=== PATIENT | female | born 1995 | race Two or more races ===

== ENCOUNTER → 2024-10-12 | Outpatient (CLI) | payer BC, SELFPAY ==
--- NOTE | 2024-10-12 08:46 | XR_ITS ---
Examination: Transvaginal ultrasound of the pelvis, complete Technique: Transvaginal sonographic images pelvis performed using salcido scale imaging Exam date and time: October 12, 2024 0909 hours INDICATIONS: Irregular heavy menses beginning 2 months ago FINDINGS: Uterus 6.8 cm endometrial stripe 0.6 cm Mild free fluid in the endometrium No uterine mass or intrauterine gestation Right ovary 2.7 cm arterial flow follicular cyst, 10 mm, 11 mm Left ovary 2.6 cm arterial flow 18 mm, 9 mm cyst IMPRESSION: No uterine mass or intrauterine gestation.
--- NOTE | 2024-10-12 08:46 | XR_ITS ---
Examination: Pelvic ultrasound, transabdominal, complete Technique: Transabdominal ultrasound of the pelvis performed using grayscale imaging Date and time of exam: October 12, 2024 0854 hours INDICATIONS: Irregular heavy menses 2 months FINDINGS: Uterus 6.4 cm endometrial stripe 1.0 cm Mild free fluid in the endometrium No intrauterine gestation or uterine mass Right ovary 3.4 cm arterial flow, follicles, the largest 8 mm Left ovary 3.2 cm arterial flow, follicles, the largest 15 mm, 11 mm IMPRESSION: No uterine mass or intrauterine gestation
[2024-10-12 10:08] LABS: Basophils # (Auto) 0.1 Thou/mm3 (0.0-0.2); Basophils % (Auto) 1 % (0-2.5); Eosinophils # (Auto) 0.3 Thou/mm3 (0.0-0.5); Eosinophils % (Auto) 4 % (0-10); Hematocrit 43.7 % (36.0-46.0); Hemoglobin 14.9 g/dL (12.0-16.0); Immature Granulocytes % (Auto) 0 % (0-0); Immature Granulocytes Auto 0.01 Thou/mm3 (0.00-0.00); Lymphocytes # (Auto) 2.6 Thou/mm3 (1.0-4.8); Lymphocytes % (Auto) 39 % (10-50); Mean Corpuscular HGB Conc 34.1 g/dl (31.0-37.0); Mean Corpuscular Hemoglobin 28.7 pg (25.0-35.0); Mean Corpuscular Volume 84 fL (80-100); Monocytes # (Auto) 0.6 Thou/mm3 (0.0-0.8); Monocytes % (Auto) 9 % (0-12); Neutrophils # (Auto) 3.2 Thou/mm3 (1.8-7.7); Neutrophils % (Auto) 48 % (37-80); Nucleated Red Blood Cell % 0 /100 WBC (0); Platelet Count 364 Thou/mm3 (140-440); RDW Standard Deviation 39.6 fL (36.4-46.3); Red Blood Count 5.19 Miln/mm3 (4.00-5.20); White Blood Count 6.7 Thou/mm3 (3.6-11.0)
[2024-10-12 10:36] LABS: HCG,Qualitative Serum Negative
[2024-10-12 10:43] LABS: Iron 78 mcg/dL (50-170)
== END | disposition home or self-care (01) ==
LOC: CDIM 08:47 → COPL 09:24
PROVIDERS: PCP Family Medicine; Referring Provider Nurse Practitioner Family; Visit Provider Radiology Diagnostic Radiology
DX: R10.2 Pelvic and perineal pain (principal); N92.1 Excessive and frequent menstruation with irregular cycle
CPT/HCPCS: 36415; 76830; 76856; 83540; 84703; 85025

== ENCOUNTER → 2024-11-14 | Outpatient (CLI) | payer BC, SELFPAY ==
--- NOTE | 2024-11-14 10:51 | XR_ITS ---
Examination: Pelvic ultrasound, transabdominal, complete Technique: Transabdominal ultrasound of the pelvis performed using grayscale imaging Date and time of exam: November 14, 2024 10:57 AM INDICATIONS: Left-sided pelvic pain beginning 3 months ago FINDINGS: Uterus 9.1 cm intrauterine gestational sac 1.0 cm corresponds to 5 weeks 5 day gestational age, no pole, no cardiac activity 8 x 6 x 10 mm adjacent subchorionic hemorrhage Right ovary 2.8 cm arterial flow Left ovary 3.4 cm arterial flow 16mm 15 mm cyst IMPRESSION: Empty intrauterine gestational sac corresponding to 5 weeks 5 day gestational age Recommend short-term follow-up transvaginal pelvic sonography to confirm viability
[2024-11-14 12:47] LABS: Beta HCG,Quantitative 13751 mIU/mL (<5.0)
== END | disposition home or self-care (01) ==
LOC: CDIM 10:46 → COPL 11:12
PROVIDERS: PCP Nurse Practitioner Family; Referring Provider Nurse Practitioner Family; Visit Provider Radiology Diagnostic Radiology
DX: O26.91 Pregnancy related conditions, unspecified, first trimester (principal); Z3A.01 Less than 8 weeks gestation of pregnancy
CPT/HCPCS: 36415; 76856; 84702

== ENCOUNTER → 2024-11-23 | Outpatient (CLI) | payer BC, SELFPAY ==
[2024-11-23 10:06] LABS: Beta HCG,Quantitative 56421 mIU/mL (<5.0)
== END | disposition home or self-care (01) ==
LOC: COPL 07:15
PROVIDERS: PCP Family Medicine; Referring Provider Nurse Practitioner Family; Visit Provider Nurse Practitioner Family
DX: R10.2 Pelvic and perineal pain (principal)
CPT/HCPCS: 36415; 84702

== ENCOUNTER → 2024-11-30 | Outpatient (CLI) | payer BC, SELFPAY ==
--- NOTE | 2024-11-30 | XR_ITS ---
Examination: Complete OB ultrasound, less than 14 weeks, transabdominal Date and time of exam: November 30, 2024 0914 hours INDICATIONS: Pelvic sonogram 07/17/2024 M.D. intrauterine gestational sac corresponding to 5 weeks 5 day gestational age Technique: Obstetrical ultrasound images less than 14 weeks performed via transabdominal imaging Findings: A normal shaped single intrauterine gestation is present in the uterus. CRL 1.4 cm corresponds to 7 weeks 5 day gestational age Cardiac motion 158 BPM Subchorionic hemorrhage 3.9 x 2.3 x 3.1 cm Ultrasonographic survey of visible structures unremarkable. Amniotic fluid volume appears appropriate for this estimated gestational age. Left ovary 3.1 cm arterial flow, 12 mm follicular cyst Right ovary obscured by bowel gas IMPRESSION: Viable intrauterine gestation 7 weeks 5 days Consider continued short-term follow-up given the patient's large subchorionic hemorrhage
== END | disposition home or self-care (01) ==
LOC: COPL 08:58 → CDIM 12-11 12:43
PROVIDERS: PCP Nurse Practitioner Family; Referring Provider Nurse Practitioner Family; Visit Provider Nurse Practitioner Family
DX: O26.891 Other specified pregnancy related conditions, first trimester (principal); R10.2 Pelvic and perineal pain; Z3A.01 Less than 8 weeks gestation of pregnancy
CPT/HCPCS: 76801

== ENCOUNTER 2024-12-08 15:25 | Outpatient (AMB) | payer BC, SELFPAY ==
[2024-12-08 15:48] VITALS: BP 113/71; PULSE 68; RESP 17; TEMP 36.5; O2SAT 98; BMI 28.4
--- NOTE | 2024-12-08 15:51 | AMB.OBINITIA ---
Vital Signs 12/08/24 15:48 12/08/24 15:55 Height 1.57 m 1.57 m Height Method Measured Measured Weight 70.534 kg 70.534 kg Weight Measurement Method Standing Scale Standing Scale BMI 28.4 28.6 BP 113/71 113/71 Blood Pressure Source Automatic Cuff Automatic Cuff Blood Pressure Location Right Upper Arm Right Upper Arm Position Sitting Sitting Respiration 17 17 Pulse 68 68 Pulse Source Monitor Monitor Temp 97.7 F 97.7 F Temp Source Temporal Artery Scan Temporal Artery Scan Pulse Oximetry (%) 98 98 Oxygen Delivery Method Room Air Room Air Allergies/Home Meds Allergies & Medications Allergies Sulfa (Sulfonamide Antibiotics) Allergy (Severe, Verified 12/08/24 15:48) Hives ibuprofen Allergy (Unknown, Verified 12/08/24 15:48) SWELLING TO FACE Medication Reconciliation vits no.126-ferrous fum 28 mg iron-folic acid 800 mcg tablet (Classic ) tab PO 12/08/24 [History Confirmed 12/08/24] Intake Visit Data Collection New Patient or Established: Established Patient (seen at [facility] within 3 years) Reason for Visit:: REF OB\PELVIC PAIN Consent obtained for Telemed Visit: No Seen by Clinical Staff ONLY (RN/MA): No Bicycle Courier Required: No Do You Feel Safe at Home: Yes Authorities Contacted: N/A PCP or OBGYN visit in last 3 months: No Hx Now: Yes Are you currently on any form of Control: No Pain Present Currently: No Pain Scale Used: Diaz-Tucker/Numerical Pain scale:: 0 Smoking Status Smoking Status: Never smoker Questionnaires Covid-19 Vaccine Questionnaire Has patient been vacinated for Covid-19 Have you been vacinated for Covid-19: Yes PHQ-9 PHQ-2 Over the last 2 weeks, how often have you been bothered by any of the following problems? 1. Little interest or pleasure in doing things: not at all 2. Feeling down, depressed, or hopeless: not at all Total score: 0 PHQ-9 3. Trouble falling or staying asleep, or sleeping too much: Not at all 4. Feeling tired or having little energy: Not at all 5. Poor appetite or overeating: Not at all 6. Feeling bad about yourself - or that you are a failure or have let yourself or your family down: Not at all 7. Trouble concentrating on things, such as reading the newspaper or watching television: Not at all 8. Moving or speaking so slowly that other people could have noticed? - Or the opposite - being so fidgety or restless that you have been moving around a lot more than usual: not at all 9. Thoughts that you would be better off or of hurting yourself in some way: Not at all Total score: 0 If you checked off any problems, how difficult have these problems made it for you to do your work, take care of things at home, or get along with other people?: not difficult at all Source: Developed by Drs. Sammy Hampton, Heather Palma, Kvng Ruth and colleagues, with an educational jaylin from [employer]. 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 She was dianosed with a . US are all WNL. Pt and spouse are surprised but will continue the . She denies heavy VB or any craming or severe pain with this prenancy. 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: Past Medical History Additional Operations/Hospitalizations (year & reason): x2 2017 39 weeks 8 lbs, no complications in 2011 8 lbs 14 oz no complications Varicose Vein removal 2020 with a local blood clot as a complication of the gel material used to block the vein Other Relevant History: Migraines Hx Blood in stool s/p Normal colon screen Had all three HPV vaccines NO HTN, DM or Asthma OB Initial Visit OB Flowsheet OB Flowsheet Initial Weight: Not Recorded Date <del>?</del> EGA Weight BP Alb Glu CTX Pres Fundal ht FHR Mov Dilation Station Effacement Hx Notes Visit Note 07/18/25 <del>?</del> 8w 6d 70.534 kg 70.534 kg 113/71 113/71 9 New OB. Had official US and EDC 07/15/25 not consistent with LMP. Order labs tests Menstrual History Menstrual reliability: approximate (month known) Flow: heavy Menstrual regularity: irregular Monthly: No Age at menarche: 13 On control pills at conception: No OB History : 2 Para: 2 Hx Total # of Abortions (Spontaneous & Elective): 0 # of Living Children: 2 Infection History & Risk Evaluation History of STDs: none HIV risk evaluation: low risk Hepatitis B risk evaluation: low risk Patient or partner has history of Genital Herpes: No Genetic Screening & History Genetic Screening/Teratology Counseling - Includes patient, baby's father, or anyone in either family with: 1. Patient's age 35 years or older as of estimated date of delivery: No 2. Thalassemia (Haitian, Omani, Mediterranean, or Background); MCV less than 80: No 3. Neural Tube Defect (Meningomyelocele, Spina Bifida, or Anencephaly): No 4. Congenital Heart Defect: No 5. Down Syndrome: No 6. Oscar-Sachs (Ashkenazi Presybeterian, Cajun, Sinhala American): No 7. Desiree Disease (Ashkenazi Presybeterian): No 8. Familial Dysautonomia (Ashkenazi Presybeterian): No 9. Sickle Cell Disease or Trait (): No 10. Hemophilia or other blood disorders: No 11. Muscular Dystrophy: No 12. Cystic Fibrosis: No 13. Sheridan's Chorea: No 14. Mental Retardation/Autism: No 15. Other inherited genetic or chromosomal disorder: No 16. Maternal Metabolic Disorder (EG,TYPE 1 Diabetes, PKU): No 17. Patient or baby's father had a child with defects not listed above: No 18. Recurrent loss or a stillbirth: No 19. Medications (including supplements, vitamins, herbs or otc drugs)/illicit/recreational drugs/alcohol since last menstrual period: No 20. Any other: No Infection History 1. Live with someone with TB or exposed to TB: No 2. Rash or viral illness since last menstrual period: No 3. Hepatitis B,C: No Other (see comments) Source: [employer] Office Procedures OB Clinic LOC & Office Proc's Nursing/Assessment Patient Status: Initial/New Patient OB Clinic Nursing Assessment: Medication Reconciliation, Update PMH in EMR and Vital Signs OB Clinic Coordination of Care: Complex Care and Chronic Disease 1-5, Consent,records obtained, informed consent, Education Simp Pt/Fam and 4+ Authorizations needed New Patient Charge New Patient Point Assignment: 1099 New Patient Point Charge: ORACLE BUSINESS INTELLIGENCE DEVELOPER Level 3 (8251-0612) Assessment & Plan Diagnosis / Problem List (1) : Status: Acute Qualifiers: Weeks of gestation: 9 weeks Qualified Code(s): Z3A.09 - 9 weeks gestation of Plan: Order PNC labs, offered NIPT, follow up in 4 weeks EDC 07/15/25 by 7 5 week US at [facility]
[2024-12-08 15:55] VITALS: BP 113/71; PULSE 68; RESP 17; TEMP 36.5; O2SAT 98; BMI 28.6
== END 2024-12-08 16:34 | disposition home or self-care (01) ==
PROVIDERS: PCP Family Medicine; Referring Provider Family Medicine; Supervising Provider Obstetrics & Gynecology; Visit Provider Obstetrics & Gynecology
DX: Z34.81 Encounter for supervision of other normal pregnancy, first trimester (principal); Z3A.08 8 weeks gestation of pregnancy
CPT/HCPCS: 99203; G0463

== ENCOUNTER 2025-01-12 15:04 | Outpatient (AMB) | payer BC, SELFPAY ==
[2025-01-12 15:16] VITALS: BP 112/74; PULSE 66; RESP 16; TEMP 36.2; O2SAT 98; BMI 29.6
--- NOTE | 2025-01-12 15:16 | AMB.OBVISIT ---
Vital Signs 01/12/25 15:16 Height 1.57 m Height Method Stated Weight 73.028 kg Weight Measurement Method Standing Scale BMI 29.6 BP 112/74 Blood Pressure Source Automatic Cuff Blood Pressure Location Left Upper Arm Position Sitting Respiration 16 Pulse 66 Pulse Source Monitor Temp 97.2 F Temp Source Oral Pulse Oximetry (%) 98 Oxygen Delivery Method Room Air Allergies/Home Meds Allergies & Medications Allergies Sulfa (Sulfonamide Antibiotics) Allergy (Severe, Verified 01/12/25 15:17) Hives ibuprofen Allergy (Unknown, Verified 01/12/25 15:17) SWELLING TO FACE Medication Reconciliation vits no.126-ferrous fum 28 mg iron-folic acid 800 mcg tablet (Classic ) tab PO 12/08/24 [History Confirmed 01/12/25] vitamins no.159-iron fumarate 28 mg-folic acid 800 mcg tablet 1 tab PO DAILY #90 tabs 01/12/25 [Rx] Intake Visit Data Collection New Patient or Established: Established Patient (seen at [facility] within 3 years) Reason for Visit:: OBC/ PRENATL REFILLS Seen by Clinical Staff ONLY (RN/MA): No Steel 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 1. Little interest or pleasure in doing things: not at all 2. Feeling down, depressed, or hopeless: not at all Total score: 0 PHQ-9 3. Trouble falling or staying asleep, or sleeping too much: Not at all 4. Feeling tired or having little energy: Not at all 5. Poor appetite or overeating: Not at all 6. Feeling bad about yourself - or that you are a failure or have let yourself or your family down: Not at all 7. Trouble concentrating on things, such as reading the newspaper or watching television: Not at all 8. Moving or speaking so slowly that other people could have noticed? - Or the opposite - being so fidgety or restless that you have been moving around a lot more than usual: not at all 9. Thoughts that you would be better off or of hurting yourself in some way: Not at all Total score: 0 If you checked off any problems, how difficult have these problems made it for you to do your work, take care of things at home, or get along with other people?: not difficult at all Source: Developed by Drs. Sammy Hampton, Heather Palma, Kvng Ruth and colleagues, with an educational jaylin from [employer]. 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 She is a son who is 13 years old and a daughter who is 8 years old. This was a surprise . Patient's EDC is 07/15/2025. OB Ultrasound Indication Indication: Size and dates of viability OB Ultrasound Ultrasound technique: transabdominal Gestational sac assessment: Presence, location, size, shape: Live intrauterine with a crown-rump length of 7 cm corresponding to 13 weeks 1 day. Cardiac activity 147 bpm seen. Care OB Visit Log OB Flowsheet Initial Weight: Not Recorded Date <del>?</del> EGA Weight BP Alb Glu CTX Pres Fundal ht FHR Mov Dilation Station Effacement Hx Notes Visit Note 12/08/24 <del>?</del> 8w 6d 70.534 kg 70.534 kg 113/71 113/71 9 New OB. Had official US and EDC 07/15/25 not consistent with LMP. Order labs tests 01/12/25 <del>?</del> 13w 6d 73.028 kg 112/74 15 absent No vaginal bleeding or loss of fluids. Patient doing well all labs reviewed. KAY Calculator Estimated Delivery Date Method Current WG Current Estimate 07/14/25 Ultrasound #1 14w 0d Other Estimates 07/07/25 LMP (Uncertain) 15w 0d Expected Delivery Route/Plan 30-year-old -0-0-2 History of vaginal delivery x 2, 13 and 8 years ago Specific Issue/Plans Considering tubal versus vasectomy labs O+/ antibody negative/ rubella immune/ RPR nonreactive /HIV negative/ hepatitis B surface antigen negative/hep C negative/ GC negative /Chlamydia negative/ hemoglobin 12.7 hematocrit 39.1/NIPT 46 XY Notes Visit Date: 01/12/25 Last Updated by: Saira Yuan (OB Clinic)MD labs on the chart from 12/24/2024: O+/antibody negative rubella immune/RPR nonreactive/HIV negative/ hepatitis B surface antigen negative/hep C negative/GC negative /Chlamydia negative hemoglobin 12.7/hematocrit 39.1/NIPT 46 XY. Visit Date: 12/08/24 Last Updated by: Saira Yuan (OB Clinic)MD All PNC labs ordered and offered NIPT hx x 2 Low risk Office Procedures OB Clinic LOC & Office Proc's Nursing/Assessment Patient Status: Established Patient OB Clinic Nursing Assessment: Medication Reconciliation, Update PMH in EMR and Vital Signs OB Clinic Coordination of Care: Consent,records obtained, informed consent, Lab and Imaging orders, Results/Orders obtained and Staff clarify orders Special Needs: Heart tones Established Patient Charge Established Patient Point Assignment: 95 Established Patient Point Charge: EP Level 3 (80-115) Assessment & Plan Diagnosis / Problem List (1) : Status: Acute Qualifiers: Weeks of gestation: 13 weeks Qualified Code(s): Z3A.13 - 13 weeks gestation of Additional Plan Follow Up: 4 Weeks
== END 2025-01-12 15:54 | disposition home or self-care (01) ==
LOC: HODSOBC 15:04
PROVIDERS: Supervising Provider Obstetrics & Gynecology; Visit Provider Obstetrics & Gynecology
DX: Z34.81 Encounter for supervision of other normal pregnancy, first trimester (principal); Z3A.13 13 weeks gestation of pregnancy; Z88.6 Allergy status to analgesic agent; Z88.2 Allergy status to sulfonamides
CPT/HCPCS: 99213; G0463

== ENCOUNTER 2025-01-29 10:10 | Outpatient (AMB) | payer BC, SELFPAY ==
[2025-01-29 10:14] VITALS: BP 118/75; PULSE 78; RESP 16; TEMP 36.2; O2SAT 98; BMI 30.2
--- NOTE | 2025-01-29 10:14 | OBCLNT_ITS ---
Vital Signs 01/29/25 10:14 Height 1.57 m Height Method Stated Weight 74.503 kg Weight Measurement Method Standing Scale BMI 30.2 BP 118/75 Blood Pressure Source Automatic Cuff Blood Pressure Location Left Upper Arm Position Sitting Respiration 16 Pulse 78 Pulse Source Monitor Temp 97.2 F Temp Source Oral Pulse Oximetry (%) 98 Oxygen Delivery Method Room Air Allergies/Home Meds Allergies & Medications Allergies Sulfa (Sulfonamide Antibiotics) Allergy (Severe, Verified 01/29/25 10:15) Hives ibuprofen Allergy (Unknown, Verified 01/29/25 10:15) SWELLING TO FACE Medication Reconciliation vits no.126-ferrous fum 28 mg iron-folic acid 800 mcg tablet (Classic ) tab PO 12/08/24 [History Confirmed 01/29/25] vitamins no.159-iron fumarate 28 mg-folic acid 800 mcg tablet 1 tab PO DAILY #90 tabs 01/12/25 [Rx Confirmed 01/29/25] nitrofurantoin monohydrate/macrocrystals 100 mg capsule (Macrobid) 100 mg PO BID 7 days #14 caps 01/29/25 [Rx] Intake Visit Data Collection New Patient or Established: Established Patient (seen at [facility] within 3 years) Reason for Visit:: OBC Seen by Clinical Staff ONLY (RN/MA): No Necktie Centralizing Machine 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 1. Little interest or pleasure in doing things: not at all 2. Feeling down, depressed, or hopeless: not at all Total score: 0 PHQ-9 3. Trouble falling or staying asleep, or sleeping too much: Not at all 4. Feeling tired or having little energy: Not at all 5. Poor appetite or overeating: Not at all 6. Feeling bad about yourself - or that you are a failure or have let yourself or your family down: Not at all 7. Trouble concentrating on things, such as reading the newspaper or watching television: Not at all 8. Moving or speaking so slowly that other people could have noticed? - Or the opposite - being so fidgety or restless that you have been moving around a lot more than usual: not at all 9. Thoughts that you would be better off or of hurting yourself in some way: Not at all Total score: 0 If you checked off any problems, how difficult have these problems made it for you to do your work, take care of things at home, or get along with other people?: not difficult at all Source: Developed by Drs. Sammy Hampton, Heather Palma, Kvng Ruth and colleagues, with an educational jaylin from [employer]. 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 Had o fficial US and EDC 07/15/25 not consistent with LMP. Order labs tests 01/12/25 -?-?-?-?-?-?-?-?-?-?-?-?- 13w 6d 73.028 kg 112/74 15 absent No vaginal bleeding or loss of fluids. Patient doing we ll all labs reviewed. 01/29/25 -?-?-?-?-?-?-?-?-?-?-?-?- 16w 2d 74.503 kg 118/75 16 absent +FM patient feels cramping and pressure. She has urinary frequency. No fevers or chills. Check ultrasound stat. Check urinalysis and culture stat. Macrobid. KAY Calculator Estimated Delivery Date Method Current WG Current Estimate 07/14/25 Ultrasound #1 16w 2d Other Estimates 07/07/25 LMP (Uncertain) 17w 2d Expected Delivery Route/Plan 30-year-old -0-0-2 History of vaginal delivery x 2, 13 and 8 years ago Specific Issue/Plans Considering tubal versus vasectomy labs O+/ antibody negative/ rubella immune/ RPR nonreactive /HIV negative/ hepatitis B surface antigen negative/hep C negative/ GC negative /Chlamydia negative/ hemoglobin 12.7 hematocrit 39.1/NIPT 46 XY Notes Visit Date: 01/29/25 Last Updated by: Saira Yuan (OB Clinic)MD Ordered ultrasound for cervical length and urinalysis and culture. Visit Date: 01/12/25 Last Updated by: Saira Yuan (OB Clinic)MD labs on the chart from 12/24/2024: O+/antibody negative rubella immune/RPR nonreactive/HIV negative/ hepatitis B surface antigen negative/hep C negative/GC negative /Chlamydia negative hemoglobin 12.7/hematocrit 39.1/NIPT 46 XY. Visit Date: 12/08/24 Last Updated by: Saira Yuan (OB Clinic)MD All PNC labs ordered and offered NIPT hx x 2 Low risk Office Procedures OB Clinic LOC & Office Proc's Nursing/Assessment Patient Status: Established Patient OB Clinic Nursing Assessment: Medication Reconciliation, Update PMH in EMR and Vital Signs OB Clinic Coordination of Care: Education Complex Pt/Fam, Consent,records obtained, informed consent, Lab and Imaging orders and Staff clarify orders Special Needs: Heart tones Established Patient Charge Established Patient Point Assignment: 110 Established Patient Point Charge: EP Level 3 (80-115) Assessment & Plan Diagnosis / Problem List (1) : Status: Acute Qualifiers: Weeks of gestation: 16 weeks Qualified Code(s): Z3A.16 - 16 weeks gesta tion of (2) Abdominal pain: Status: Acute Qualifiers: Abdominal location: generalized Qualified Code(s): R10.84 - Generalized abdominal pain Plan: Check stat ultrasound (3) Dysuria: Status: Acute Plan: Check urinalysis and culture Macrobid
== END 2025-01-29 10:47 | disposition home or self-care (01) ==
LOC: HODSOBC 10:10
PROVIDERS: Supervising Provider Obstetrics & Gynecology; Visit Provider Obstetrics & Gynecology
DX: O09.892 Supervision of other high risk pregnancies, second trimester (principal); O99.891 Other specified diseases and conditions complicating pregnancy; R10.9 Unspecified abdominal pain; R30.0 Dysuria; R35.0 Frequency of micturition; Z3A.16 16 weeks gestation of pregnancy; Z88.6 Allergy status to analgesic agent; Z88.2 Allergy status to sulfonamides
CPT/HCPCS: 99213; G0463

== ENCOUNTER → 2025-01-30 | Outpatient (CLI) | payer BC, SELFPAY ==
--- NOTE | 2025-01-30 07:32 | XR_ITS ---
Examination: Complete OB ultrasound greater than 14 weeks Date and time of exam: January 30, 2025, 0735 hrs. Indications: Pelvic pressure beginning few days ago. Findings: Viable intrauterine single fetus with single amniotic sac presentation variable. Cardiac motion 140 BPM. Placenta fundal grade 1. Umbilical cord insertion seen. Amniotic fluid index 8.0 cm. spine posterior. Cervix 4.4 cm Right ovary 3.2 cm arterial flow. Left ovary 2.5 cm arterial flow. Composite estimated gestational age based on BPD, head circumference, abdominal circumference, femur length is 17 weeks 4 days, estimated weight 208 g. Survey of intracranial anatomy, spinal anatomy, abdominal anatomy, four-chamber heart performed with no abnormalities identified. Impression: Viable intrauterine gestation variable presentation..
[2025-01-30 07:59] LABS: Collection Type, Urine Clean Catch
[2025-01-30 09:07] LABS: Bacteria,Urine Rare; Bilirubin,Urine Negative (Negative); Blood,Urine Negative (Negative); Clarity,Urine Clear (Clear/Hazy); Color,Urine Colorless (Lt Yel-Yel); Culture Indicated,Urine Not Indicated; Glucose, Urine Negative (Negative); Ketones,Urine Negative (Negative); Leukocyte Esterase,Urine Negative (Negative); Nitrite,Urine Negative (Negative); PH,Urine 7.0 (5.0-7.0); Protein,Urine Negative (Neg - Trace); RBC,Urine 2 /hpf (0-3); Specific Gravity,Urine 1.006 (1.001-1.035); Squamous Epithelial Cell,Urine 1 /hpf (0-5); Urobilinogen,Urine Negative mg/dL (0.0-1.0); WBC,Urine 1 /hpf (0-5)
== END | disposition home or self-care (01) ==
PROVIDERS: PCP Obstetrics & Gynecology; Referring Provider Obstetrics & Gynecology; Visit Provider Obstetrics & Gynecology
DX: Z33.1 Pregnant state, incidental (principal); Z3A.16 16 weeks gestation of pregnancy
CPT/HCPCS: 76805; 81001

== ENCOUNTER 2025-02-12 15:40 | Outpatient (AMB) | payer BC, SELFPAY ==
[2025-02-12 16:06] VITALS: BP 123/74; PULSE 80; RESP 16; TEMP 36.6; O2SAT 96; BMI 31.1
--- NOTE | 2025-02-12 16:06 | AMB.OBVISIT ---
Vital Signs 02/12/25 16:06 Height 1.57 m Height Method Stated Weight 76.884 kg Weight Measurement Method Standing Scale BMI 31.1 BP 123/74 Blood Pressure Source Automatic Cuff Blood Pressure Location Left Upper Arm Position Sitting Respiration 16 Pulse 80 Pulse Source Monitor Temp 98 F Temp Source Oral Pulse Oximetry (%) 96 Oxygen Delivery Method Room Air Allergies/Home Meds Allergies & Medications Allergies Sulfa (Sulfonamide Antibiotics) Allergy (Severe, Verified 02/12/25 16:07) Hives ibuprofen Allergy (Unknown, Verified 02/12/25 16:07) SWELLING TO FACE Medication Reconciliation vits no.126-ferrous fum 28 mg iron-folic acid 800 mcg tablet (Classic ) tab PO 12/08/24 [History Confirmed 02/12/25] vitamins no.159-iron fumarate 28 mg-folic acid 800 mcg tablet 1 tab PO DAILY #90 tabs 01/12/25 [Rx Confirmed 02/12/25] Intake Visit Data Collection New Patient or Established: Established Patient (seen at [facility] within 3 years) Reason for Visit:: CARE Seen by Clinical Staff ONLY (RN/MA): No Digester 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 1. Little interest or pleasure in doing things: not at all 2. Feeling down, depressed, or hopeless: not at all Total score: 0 PHQ-9 3. Trouble falling or staying asleep, or sleeping too much: Not at all 4. Feeling tired or having little energy: Not at all 5. Poor appetite or overeating: Not at all 6. Feeling bad about yourself - or that you are a failure or have let yourself or your family down: Not at all 7. Trouble concentrating on things, such as reading the newspaper or watching television: Not at all 8. Moving or speaking so slowly that other people could have noticed? - Or the opposite - being so fidgety or restless that you have been moving around a lot more than usual: not at all 9. Thoughts that you would be better off or of hurting yourself in some way: Not at all Total score: 0 Source: Developed by Drs. Sammy Hampton, Heather Palma, Kvng Ruth and colleagues, with an educational jaylin from [employer]. 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 Had official US and EDC 07/15/25 not consistent with LMP. Order labs tests 01/12/25 <del>?</del> 13w 6d 73.028 kg 112/74 15 absent No vaginal bleeding or loss of fluids. Patient doing well all labs reviewed. 01/29/25 <del>?</del> 16w 2d 74.503 kg 118/75 16 absent +FM patient feels cramping and pressure. She has urinary frequency. No fevers or chills. Check ultrasound stat. Check urinalysis and culture stat. Macrobid. 02/12/25 <del>?</del> 18w 2d 76.884 kg 123/74 19 145 active Patient feels pressure. No bleeding or contractions. Good movement Ultrasound from 01/30/2025 reveals variable presentation 7 weeks 4 days YANETH normal and a cervical length of 4.4 cm. Structural survey was reported as normal but it was early and a urinalysis was negative. KAY Calculator Estimated Delivery Date Method Current WG Current Estimate 07/14/25 Ultrasound #1 18w 2d Other Estimates 07/07/25 LMP (Uncertain) 19w 2d Expected Delivery Route/Plan 30-year-old -0-0-2 History of vaginal delivery x 2, 13 and 8 years ago Specific Issue/Plans Considering tubal versus vasectomy labs O+/ antibody negative/ rubella immune/ RPR nonreactive /HIV negative/ hepatitis B surface antigen negative/hep C negative/ GC negative /Chlamydia negative/ hemoglobin 12.7 hematocrit 39.1/NIPT 46 XY Notes Visit Date: 02/12/25 Last Updated by: Saira [facility] ([facility])MD Urinalysis ultrasound for cervical length were normal from last visit. Repeat structural survey at approximately 24 weeks as this was done early at approximately 17 weeks. 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 Patient states she wears it sometimes but it rubs and bothers her other times. We can authorize for a different brace and patient states she will think about it. She does work but she sits at work a lot so she is going to get up and move around about once an hour and see if this helps. Visit Date: 01/29/25 Last Updated by: Saira Yuan ([facility])MD Ordered ultrasound for cervical length and urinalysis and culture. Visit Date: 01/12/25 Last Updated by: Saira Yuan ([facility])MD labs on the chart from 12/24/2024: O+/antibody negative rubella immune/RPR nonreactive/HIV negative/ hepatitis B surface antigen negative/hep C negative/GC negative /Chlamydia negative hemoglobin 12.7/hematocrit 39.1/NIPT 46 XY. Visit Date: 12/08/24 Last Updated by: Saira Yuan ([facility])MD All PNC labs ordered and offered NIPT hx x 2 Low risk Office Procedures OB Clinic LOC & Office Proc's Nursing/Assessment Patient Status: Established Patient OB Clinic Nursing Assessment: Medication Reconciliation, Update PMH in EMR and Vital Signs OB Clinic Coordination of Care: Complex Care and Chronic Disease 1-5, Consent,records obtained, informed consent, Education Simp Pt/Fam, Lab and Imaging orders, Results/Orders obtained and Staff clarify orders Special Needs: Heart tones Established Patient Charge Established Patient Point Assignment: 135 Established Patient Point Charge: EP Level 4 (120-155) Assessment & Plan Diagnosis / Problem List (1) : Status: Acute Qualifiers: Weeks of gestation: 18 weeks Qualified Code(s): Z3A.18 - 18 weeks gestation of Plan: Follow-up 4 weeks. Repeat structural survey in 4 weeks.
== END 2025-02-12 16:35 | disposition home or self-care (01) ==
LOC: HODSOBC 15:40
PROVIDERS: Supervising Provider Obstetrics & Gynecology; Visit Provider Obstetrics & Gynecology
DX: Z34.82 Encounter for supervision of other normal pregnancy, second trimester (principal); Z3A.18 18 weeks gestation of pregnancy
CPT/HCPCS: 99214; G0463

== ENCOUNTER 2025-03-23 13:02 | Outpatient (AMB) | payer BC, SELFPAY ==
--- NOTE | 2025-03-23 13:04 | AMB.OBVISIT ---
Vital Signs 03/23/25 13:10 Height 1.57 m Height Method Stated Weight 78.471 kg Weight Measurement Method Standing Scale BMI 31.8 BP 119/73 Blood Pressure Source Automatic Cuff Blood Pressure Location Left Upper Arm Position Sitting Respiration 16 Pulse 96 Pulse Source Monitor Temp 97.2 F Temp Source Oral Pulse Oximetry (%) 97 Oxygen Delivery Method Room Air Allergies/Home Meds Allergies & Medications Allergies Sulfa (Sulfonamide Antibiotics) Allergy (Severe, Verified 03/23/25 13:04) Hives ibuprofen Allergy (Unknown, Verified 03/23/25 13:04) SWELLING TO FACE Medication Reconciliation vits no.126-ferrous fum 28 mg iron-folic acid 800 mcg tablet (Classic ) tab PO 12/08/24 [History Confirmed 03/23/25] vitamins no.159-iron fumarate 28 mg-folic acid 800 mcg tablet 1 tab PO DAILY #90 tabs 01/12/25 [Rx Confirmed 03/23/25] Intake Visit Data Collection New Patient or Established: Established Patient (seen at [facility] within 3 years) Reason for Visit:: OBC Seen by Clinical Staff ONLY (RN/MA): No Marketing Executive Required: No Do You Feel Safe at Home: Yes Authorities Contacted: N/A PCP or OBGYN visit in last 3 months: Yes Date of Last PCP or OBGYN visit: 02/12/25 Hx Now: Yes Are you currently on any form of Control: No Pain Present Currently: No Pain Scale Used: Diaz-Tucker/Numerical Pain scale:: 0 Smoking Status Smoking Status: Never smoker Immunizations Flu Vaccine in the Last 12 Months: No Flu Vaccine Exclusion Criteria: No Exclusion Criteria Questionnaires Covid-19 Vaccine Questionnaire Has patient been vacinated for Covid-19 Have you been vacinated for Covid-19: Yes PHQ-9 PHQ-2 Over the last 2 weeks, how often have you been bothered by any of the following problems? 1. Little interest or pleasure in doing things: not at all 2. Feeling down, depressed, or hopeless: not at all Total score: 0 PHQ-9 3. Trouble falling or staying asleep, or sleeping too much: Not at all 4. Feeling tired or having little energy: Not at all 5. Poor appetite or overeating: Not at all 6. Feeling bad about yourself - or that you are a failure or have let yourself or your family down: Not at all 7. Trouble concentrating on things, such as reading the newspaper or watching television: Not at all 8. Moving or speaking so slowly that other people could have noticed? - Or the opposite - being so fidgety or restless that you have been moving around a lot more than usual: not at all 9. Thoughts that you would be better off or of hurting yourself in some way: Not at all Total score: 0 If you checked off any problems, how difficult have these problems made it for you to do your work, take care of things at home, or get along with other people?: not difficult at all Source: Developed by Drs. Sammy Hampton, Heather Palma, Kvng Ruth and colleagues, with an educational jaylin from [employer]. 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 Past Medical History: No Hx Cardiac Disorders, No Hx Renal Disease, No Hx Diabetes Mellitus Type 1 and No Hx Diabetes Mellitus Type 2 History of Present Illness HPI Narrative 30-year-old -0-0-2 History of vaginal delivery x 2, 13 and 8 years ago Considering tubal versus vasectomy labs O+/ antibody negative/ rubella immune/ RPR nonreactive /HIV negative/ hepatitis B surface antigen negative/hep C negative/ GC negative /Chlamydia negative/ hemoglobin 12.7 hematocrit 39.1/NIPT 46 XY Review of Systems Review of Systems Systems Reviewed: All systems reviewed, normal except as documented Musculoskeletal Musculoskeletal: Reports system reviewed and no additional complaints, except as documented Care OB Visit Log OB Flowsheet Initial Weight: Not Recorded Date <del>?</del> EGA Weight BP Alb Glu CTX Pres Fundal ht FHR Mov Dilation Station Effacement Hx Notes Visit Note 12/08/24 <del>?</del> 8w 6d 70.534 kg 70.534 kg 113/71 113/71 9 New OB. Had official US and EDC 07/15/25 not consistent with LMP. Order labs tests 01/12/25 <del>?</del> 13w 6d 73.028 kg 112/74 15 absent No vaginal bleeding or loss of fluids. Patient doing well all labs reviewed. 01/29/25 <del>?</del> 16w 2d 74.503 kg 118/75 16 absent +FM patient feels cramping and pressure. She has urinary frequency. No fevers or chills. Check ultrasound stat. Check urinalysis and culture stat. Macrobid. 02/12/25 <del>?</del> 18w 2d 76.884 kg 123/74 19 145 active Patient feels pressure. No bleeding or contractions. Good movement Ultrasound from 01/30/2025 reveals variable presentation 7 weeks 4 days YANETH normal and a cervical length of 4.4 cm. Structural survey was reported as normal but it was early and a urinalysis was negative. 03/23/25 <del>?</del> 23w 6d 78.471 kg 119/73 absent unknown 24 141 active patient feels pelvic pressure but no contractions KAY Calculator Estimated Delivery Date Method Current WG Current Estimate 07/14/25 Ultrasound #1 23w 6d Other Estimates 07/07/25 LMP (Uncertain) 24w 6d Expected Delivery Route/Plan 30-year-old -0-0-2 History of vaginal delivery x 2, 13 and 8 years ago Specific Issue/Plans Considering tubal versus vasectomy labs O+/ antibody negative/ rubella immune/ RPR nonreactive /HIV negative/ hepatitis B surface antigen negative/hep C negative/ GC negative /Chlamydia negative/ hemoglobin 12.7 hematocrit 39.1/NIPT 46 XY Notes Visit Date: 03/23/25 Last Updated by: Sharona Valladares MD pelvic pressure/ brace using on and off plan US for cervical length and also growth order one hour GTT and RPR and CBC she needs to do stretching for joint stiffness / no suprapubic tenderness at 23.6 weeks / follow up in 4 weeks Visit Date: 02/12/25 Last Updated by: Saira Yuan ([facility])MD Urinalysis ultrasound for cervical length were normal from last visit. Repeat structural survey at approximately 24 weeks as this was done early at approximately 17 weeks. 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 Patient states she wears it sometimes but it rubs and bothers her other times. We can authorize for a different brace and patient states she will think about it. She does work but she sits at work a lot so she is going to get up and move around about once an hour and see if this helps. Visit Date: 01/29/25 Last Updated by: Saira Yuan ([facility])MD Ordered ultrasound for cervical length and urinalysis and culture. Visit Date: 01/12/25 Last Updated by: Saira Yuan ([facility])MD labs on the chart from 12/24/2024: O+/antibody negative rubella immune/RPR nonreactive/HIV negative/ hepatitis B surface antigen negative/hep C negative/GC negative /Chlamydia negative hemoglobin 12.7/hematocrit 39.1/NIPT 46 XY. Visit Date: 12/08/24 Last Updated by: Saira Yuan ([facility])MD All C labs ordered and offered NIPT hx x 2 Low risk Office Procedures OBC Clinic LOC & Office Proc's Nursing/Assessment Patient Status: Established Patient OB Clinic Nursing Assessment: Medication Reconciliation, Update PMH in EMR and Vital Signs OB Clinic Coordination of Care: Consent,records obtained, informed consent, Education Simp Pt/Fam, Lab and Imaging orders, Results/Orders obtained and Staff clarify orders Special Needs: Heart tones Established Patient Charge Established Patient Point Assignment: 110 Established Patient Point Charge: EP Level 3 (80-115) Assessment & Plan Diagnosis / Problem List (1) Pelvic pressure in : Status: Acute (2) : Status: Acute Qualifiers: Weeks of gestation: 18 weeks Qualified Code(s): Z3A.18 - 18 weeks gestation of (3) 24 weeks gestation of : Status: Acute Assessment and Plan: pelvic pressure/ brace using on and off plan US for cervical length and also growth order one hour GTT and RPR and CBC she needs to do stretching for joint stiffness / no suprapubic tenderness at 23.6 weeks / follow up in 4 weeks Visit Date: 02/12/25?? Last Updated by: Saira Yuan ([facility])MD Urinalysis ultrasound for cervical length were normal from last visit. Repeat structural survey at approximately 24 weeks as this was done early at approximately 17 weeks. 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 Patient states she wears it sometimes but it rubs and bothers her other times. We can authorize for a different brace and patient states she will think about it. She does work but she sits at work a lot so she is going to get up and move around about once an hour and see if this helps. Visit Date: 01/29/25?? Last Updated by: Saira Yuan ([facility])MD Ordered ultrasound for cervical length and urinalysis and culture. Visit Date: 01/12/25?? Last Updated by: Saira Yuan ([facility])MD labs on the chart from 12/24/2024: O+/antibody negative rubella immune/RPR nonreactive/HIV negative/ hepatitis B surface antigen negative/hep C negative/GC negative /Chlamydia negative hemoglobin 12.7/hematocrit 39.1/NIPT 46 XY. Visit Date: 12/08/24?? Last Updated by: Saira Yuan ([facility])MD All PNC labs ordered and offered NIPT hx x 2 advised restricted activity / follow up in 4 weeks
[2025-03-23 13:10] VITALS: BP 119/73; PULSE 96; RESP 16; TEMP 36.2; O2SAT 97; BMI 31.8
== END 2025-03-23 14:14 | disposition home or self-care (01) ==
LOC: HODSOBC 13:02
PROVIDERS: Supervising Provider Obstetrics & Gynecology; Visit Provider Obstetrics & Gynecology
DX: O09.892 Supervision of other high risk pregnancies, second trimester (principal); O99.891 Other specified diseases and conditions complicating pregnancy; R10.20 Pelvic and perineal pain unspecified side; Z3A.23 23 weeks gestation of pregnancy; Z88.6 Allergy status to analgesic agent; Z88.2 Allergy status to sulfonamides
CPT/HCPCS: 99213; G0463

== ENCOUNTER → 2025-04-04 | Outpatient (CLI) | payer BC, SELFPAY ==
[2025-04-04 09:59] LABS: Basophils # (Auto) 0.1 Thou/mm3 (0.0-0.2); Basophils % (Auto) 0 % (0-2.5); Eosinophils # (Auto) 0.2 Thou/mm3 (0.0-0.5); Eosinophils % (Auto) 2 % (0-10); Hematocrit 35.2 % (36.0-46.0); Hemoglobin 12.2 g/dL (12.0-16.0); Immature Granulocytes Auto 0.26 Thou/mm3 (0.00-0.00); Lymphocytes # (Auto) 1.9 Thou/mm3 (1.0-4.8); Lymphocytes % (Auto) 14 % (10-50); Mean Corpuscular HGB Conc 34.7 g/dl (31.0-37.0); Mean Corpuscular Hemoglobin 29.5 pg (25.0-35.0); Mean Corpuscular Volume 85 fL (80-100); Monocytes # (Auto) 0.7 Thou/mm3 (0.0-0.8); Monocytes % (Auto) 5 % (0-12); Neutrophils # (Auto) 10.5 Thou/mm3 (1.8-7.7); Neutrophils % (Auto) 77 % (37-80); Nucleated Red Blood Cell # 0.00 Thou/mm3 (0.00-0.00); Nucleated Red Blood Cell % 0 /100 WBC (0); Platelet Count 261 Thou/mm3 (140-440); RDW Standard Deviation 41.8 fL (36.4-46.3); Red Blood Count 4.14 Miln/mm3 (4.00-5.20); White Blood Count 13.7 Thou/mm3 (3.6-11.0)
[2025-04-04 10:18] LABS: Glucose,1 Hour PP 50gm Dose 121 mg/dL (80-140)
[2025-04-04 10:38] LABS: Syphilis Nonreactive (Nonreactive)
== END | disposition home or self-care (01) ==
LOC: COPL 08:18
PROVIDERS: PCP Nurse Practitioner Family; Referring Provider Obstetrics & Gynecology; Visit Provider Obstetrics & Gynecology
DX: Z01.89 Encounter for other specified special examinations (principal)
CPT/HCPCS: 36415; 82950; 85025; 86780

== ENCOUNTER 2025-04-17 14:29 | Outpatient (AMB) | payer BC, SELFPAY ==
[2025-04-17 14:46] VITALS: BP 133/79; PULSE 102; RESP 18; TEMP 36.8; O2SAT 98; BMI 33.5
--- NOTE | 2025-04-17 14:46 | OBCLNT_ITS ---
Vital Signs 04/17/25 14:46 Height 1.57 m Height Method Stated Weight 82.611 kg Weight Measurement Method Standing Scale BMI 33.5 BP 133/79 H Blood Pressure Source Automatic Cuff Blood Pressure Location Left Upper Arm Position Sitting Respiration 18 Pulse 102 H Pulse Source Monitor Temp 98.2 F Temp Source Oral Pulse Oximetry (%) 98 Oxygen Delivery Method Room Air Allergies/Home Meds Allergies & Medications Allergies Sulfa (Sulfonamide Antibiotics) Allergy (Severe, Verified 04/17/25 14:53) Hives ibuprofen Allergy (Unknown, Verified 04/17/25 14:53) SWELLING TO FACE Medication Reconciliation vits no.126-ferrous fum 28 mg iron-folic acid 800 mcg tablet (Classic ) tab PO 12/08/24 [History Confirmed 04/17/25] vitamins no.159-iron fumarate 28 mg-folic acid 800 mcg tablet 1 tab PO DAILY #90 tabs 01/12/25 [Rx Confirmed 04/17/25] Immunizations Immunizations Flu Vaccine in the Last 12 Months: No Flu Vaccine Exclusion Criteria: Refused by Patient Care OB Visit Log OB Flowsheet Initial Weight: Not Recorded Date -?-?-?-?-?-?-?-?-?-?-?-?- EGA Weight BP Alb Glu CTX Pres Fundal ht FHR Mov Dilation Station Effacement Hx Notes Visit Note 12/08/24 -?-?-?-?-?-?-?-?-?-?-?-?- 8w 6d 70.534 kg 70.534 kg 113/71 113/71 9 New OB. Had o fficial US and EDC 07/15/25 not consistent with LMP. Order labs tests 01/12/25 -?-?-?-?-?-?-?-?-?-?-?-?- 13w 6d 73.028 kg 112/74 15 absent No vaginal bleeding or loss of fluids. Patient doing we ll all labs reviewed. 01/29/25 -?-?-?-?-?-?-?-?-?-?-?-?- 16w 2d 74.503 kg 118/75 16 absent +FM patient feels cramping and pressure. She has urinary frequency. No fevers or chills. Check ultrasound stat. Check urinalysis and culture stat. Macrobid. 02/12/25 -?-?-?-?-?-?-?-?-?-?-?-?- 18w 2d 76.884 kg 123/74 19 145 active Patient feels pressure. No bleeding or contractions. Good movement Ultrasound from 01/30/2025 reveals variable presentation 7 weeks 4 days YANETH normal and a cervical length of 4.4 cm. Structural survey was reported as normal but it was early and a urinalysis was negative. 03/23/25 -?--?-?-?-?-?-?-?-?-?-?-?- 23w 6d 78.471 kg 119/73 absent unknown 24 141 active patient feels pelvic pressure but no contractions 04/17/25 -?-?--?-?-?-?-?-?-?-?-?-?- 27w 3d 82.611 kg 133/79 absent unknown KAY Calculator Estimated Delivery Date Method Current WG Current Estimate 07/14/25 Ultrasound #1 28w 3d Other Estimates 07/07/25 LMP (Uncertain) 29w 3d Expected Delivery Route/Plan 30-year-old -0-0-2 History of vaginal delivery x 2, 13 and 8 years ago Specific Issue/Plans Considering tubal versus vasectomy labs O+/ antibody negative/ rubella immune/ RPR nonreactive /HIV negative/ hepatitis B surface antigen negative/hep C negative/ GC negative /Chlamydia negative/ hemoglobin 12.7 hematocrit 39.1/NIPT 46 XY Notes Visit Date: 04/17/25 Last Updated by: Sharona Valladares MD here for follow up at 27.3 weeks / she works sitting down and feels pelvic pressure / US for cervical length and Ob scheduled for 05/02/2025 and she had one dizzy episode 1.5 weeks ago at the dentist office / she has been advised to stretch and walk every 10 minutes at work for lower back pain/ and also to use abdominal binder and she does not follow instructions / her dizzy episode sounds like a vasovagal episode / adv to sleep on left side as well / follow up in 2 weeks / labs done for GTT on 04/04 and are normal for 1 hour GTT 121 and not anemic and RPR is NR / follow up in 2 to 3 weeks O+/antibody negative rubella immune/RPR nonreactive/HIV negative/ hepatitis B surface antigen negative/hep C negative/GC negative /Chlamydia negative hemoglobin 12.7/hematocrit 39.1/NIPT 46 XY. All PNC labs ordered and offered NIPT hx x 2 Low risk Visit Date: 03/23/25 Last Updated by: Sharona Valladares MD pelvic pressure/ brace using on and off plan US for cervical length and also growth order one hour GTT and RPR and CBC she needs to do stretching for joint stiffness / no suprapubic tenderness at 23.6 weeks / follow up in 4 weeks Visit Date: 02/12/25 Last Updated by: Saira Yuan ([facility])MD Urinalysis ultrasound for cervical length were normal from last visit. Repeat structural survey at approximately 24 weeks as this was done early at approximately 17 weeks. 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 Patient states she wears it sometimes but it rubs and bothers her other times. We can authorize for a different brace and patient states she will think about it. She does work but she sits at work a lot so she is going to get up and move around about once an hour and see if this helps. Visit Date: 01/29/25 Last Updated by: Saira [facility]landon[facility])MD Ordered ultrasound for cervical length and urinalysis and culture. Visit Date: 01/12/25 Last Updated by: Saira [facility])MD labs on the chart from 12/24/2024: O+/antibody negative rubella immune/RPR nonreactive/HIV negative/ hepatitis B surface antigen negative/hep C negative/GC negative /Chlamydia negative hemoglobin 12.7/hematocrit 39.1/NIPT 46 XY. Visit Date: 12/08/24 Last Updated by: Saira Yuan ([facility])MD All PNC labs ordered and offered NIPT hx x 2 Low risk Office Procedures OBC Clinic LOC & Office Proc's Nursing/Assessment Patient Status: Established Patient OB Clinic Nursing Assessment: Medication Reconciliation, Update PMH in EMR and Vital Signs OB Clinic Coordination of Care: Consent,records obtained, informed consent, Education Simp Pt/Fam, Lab and Imaging orders, Results/Orders obtained and Staff clarify orders Special Needs: Heart tones Established Patient Charge Established Patient Point Assignment: 110 Established Patient Point Charge: EP Level 3 (80-115) Assessment & Plan Diagnosis / Problem List (1) Pelvic pressure in : Status: Acute (2) 27 weeks gestation of : Status: Acute Additional Assessment here for follow up at 27.3 weeks / she works sitting down and feels pelvic pressure / US for cervical length and Ob scheduled for 05/02/2025 and she had one dizzy episode 1.5 weeks ago at the dentist office / she has been advised to stretch and walk every 10 minutes at work for lower back pain/ and also to use abdominal binder and she does not follow instructions / her dizzy episode sounds like a vasovagal episode / adv to sleep on left side as well / follow up in 2 weeks / labs done for GTT on 04/04 and are normal for 1 hour GTT 121 and not anemic and RPR is NR / follow up in 2 to 3 weeks O+/antibody negative rubella immune/RPR nonreactive/HIV negative/ hepatitis B surface antigen negative/hep C negative/GC negative /Chlamydia negative hemoglobin 12.7/hematocrit 39.1/NIPT 46 XY. Additional Plan use abdominal binder / walk every 2 hours / sleep on left side / follow up in 2 to 3 weeks Follow Up: 2 to 3 weks
== END 2025-04-17 15:25 | disposition home or self-care (01) ==
LOC: HODSOBC 14:29
PROVIDERS: Supervising Provider Obstetrics & Gynecology; Visit Provider Obstetrics & Gynecology
DX: O09.892 Supervision of other high risk pregnancies, second trimester (principal); O99.891 Other specified diseases and conditions complicating pregnancy; R10.20 Pelvic and perineal pain unspecified side; Z3A.27 27 weeks gestation of pregnancy; Z28.21 Immunization not carried out because of patient refusal; Z88.6 Allergy status to analgesic agent; Z88.2 Allergy status to sulfonamides
CPT/HCPCS: 99213; G0463

== ENCOUNTER → 2025-05-02 | Outpatient (CLI) | payer BC, SELFPAY ==
--- NOTE | 2025-05-02 16:00 | XR_ITS ---
Examination: Complete OB ultrasound greater than 14 weeks Date and time of exam: May 02, 2025, 1541 hours INDICATIONS: Supervision otherwise normal Findings: Viable intrauterine single fetus with single amniotic sac presentation cephalic Cardiac motion 158 bpm Placenta posterior maternal right grade 1 Medical cord insertion 3 vessel seen Amniotic fluid index 14.2 cm spine maternal left Cervix 4.0 cm Ovaries obscured by bowel gas. Composite estimated gestational age based on BPD, head circumference, abdominal circumference, femur length is 30 weeks 6 days Estimated weight 1553 g. Survey of intracranial anatomy, spinal anatomy, abdominal anatomy, four-chamber heart performed with no abnormalities identified. Impression: Viable intrauterine gestation intra cephalic presentation.
== END | disposition home or self-care (01) ==
PROVIDERS: PCP Obstetrics & Gynecology; Referring Provider Obstetrics & Gynecology; Visit Provider Obstetrics & Gynecology
DX: O26.899 Other specified pregnancy related conditions, unspecified trimester (principal); Z3A.30 30 weeks gestation of pregnancy
CPT/HCPCS: 76805

== ENCOUNTER 2025-05-04 11:42 | Observation (INO) | payer BC, SELFPAY ==
[2025-05-04 12:08] VITALS: BP 117/62; PULSE 88
--- NOTE | 2025-05-04 12:21 | XR_ITS ---
Examination: Retroperitoneal ultrasound, complete Technique: Multiple high resolution grayscale images of the retroperitoneum obtained, including kidneys and bladder. Exam date and time: May 04, 2025, 1252 hours INDICATIONS: Left flank pain beginning 2 days ago. FINDINGS: Right kidney 10.9 cm renal cortex 2.5 cm Left kidney 10.9 cm renal cortex 2.6 cm No hydronephrosis or renal calculi No bladder mass or bladder calculi Bladder prevoid volume 154 cc IMPRESSION: Normal study
[2025-05-04 12:38] VITALS: BP 117/62; PULSE 88; RESP 18; RESP 99; TEMP 36.9; BMI 33.0
[2025-05-04 12:44] LABS: Collection Type, Urine Clean Catch
[2025-05-04 12:59] LABS: Bilirubin,Urine Negative (Negative); Blood,Urine Negative (Negative); Clarity,Urine Clear (Clear/Hazy); Color,Urine Lt-Yellow (Lt Yel-Yel); Glucose, Urine Negative (Negative); Ketones,Urine Negative (Negative); Leukocyte Esterase,Urine Negative (Negative); Nitrite,Urine Negative (Negative); PH,Urine 6.0 (5.0-7.0); Protein,Urine Negative (Neg - Trace); RBC,Urine 2 /hpf (0-3); Specific Gravity,Urine 1.018 (1.001-1.035); Squamous Epithelial Cell,Urine 1 /hpf (0-5); Urobilinogen,Urine Negative mg/dL (0.0-1.0); WBC,Urine 1 /hpf (0-5)
== END 2025-05-04 14:50 | disposition home or self-care (01) ==
PROVIDERS: Admitting Provider Obstetrics & Gynecology; Visit Provider Obstetrics & Gynecology
DX: O47.03 False labor before 37 completed weeks of gestation, third trimester (principal); O26.893 Other specified pregnancy related conditions, third trimester; R55 Syncope and collapse; Z3A.29 29 weeks gestation of pregnancy
CPT/HCPCS: 59025; 59899; 76770; 81001

== ENCOUNTER 2025-05-09 08:39 | Outpatient (AMB) | payer BC, SELFPAY ==
--- NOTE | 2025-05-09 08:47 | OBCLNT_ITS ---
Vital Signs 05/09/25 08:48 Height 1.57 m Height Method Stated Weight 82.611 kg Weight Measurement Method Standing Scale BMI 33.5 BP 110/74 Blood Pressure Source Automatic Cuff Blood Pressure Location Right Upper Arm Position Sitting Respiration 18 Pulse 84 Pulse Source Monitor Temp 97.5 F Temp Source Temporal Artery Scan Pulse Oximetry (%) 98 Oxygen Delivery Method Room Air Allergies/Home Meds Allergies & Medications Allergies Sulfa (Sulfonamide Antibiotics) Allergy (Severe, Verified 05/09/25 08:52) Hives ibuprofen Allergy (Unknown, Verified 05/09/25 08:52) SWELLING TO FACE Medication Reconciliation fluconazole 150 mg tablet 150 mg PO Q3D 2 doses #2 tabs 05/04/25 [Rx Confirmed 05/09/25] Immunizations Immunizations Flu Vaccine in the Last 12 Months: No Flu Vaccine Exclusion Criteria: No Exclusion Criteria Care OB Visit Log OB Flowsheet Initial Weight: Not Recorded Date -?-?-?-?-?-?-?-?-?-?-?-?- EGA Weight BP Alb Glu CTX Pres Fundal ht FHR Mov Dilation Station Effacement Hx Notes Visit Note 12/08/24 -?-?-?-?-?-?-?-?-?-?-?-?- 8w 6d 70.534 kg 70.534 kg 113/71 113/71 9 New OB. Had o fficial US and EDC 07/15/25 not consistent with LMP. Order labs tests 01/12/25 -?-?-?-?-?-?-?-?-?-?-?-?- 13w 6d 73.028 kg 112/74 15 absent No vaginal bleeding or loss of fluids. Patient doing we ll all labs reviewed. 01/29/25 -?-?-?-?-?-?-?-?-?-?-?-?- 16w 2d 74.503 kg 118/75 16 absent +FM patient feels cramping and pressure. She has urinary frequency. No fevers or chills. Check ultrasound stat. Check urinalysis and culture stat. Macrobid. 02/12/25 -?-?-?-?-?-?-?-?-?-?-?-?- 18w 2d 76.884 kg 123/74 19 145 active Patient feels pressure. No bleeding or contractions. Good movement Ultrasound from 01/30/2025 reveals variable presentation 7 weeks 4 days YANETH normal and a cervical length of 4.4 cm. Structural survey was reported as normal but it was early and a urinalysis was negative. 03/23/25 -?-?-?-?-?-?-?-?-?-?-?-?- 23w 6d 78.471 kg 119/73 absent unknown 24 141 active patient feels pelvic pressure but no contractions 04/17/25 -?-?-?-?-?-?-?-?-?-?-?-?- 27w 3d 82.611 kg 133/79 absent unknown 05/09/25 -?-?-?-?-?-?-?-?-?-?-?-?- 30w 4d 82.611 kg 110/74 absent cephalic 30 144 active KAY Calculator Estimated Delivery Date Method Current WG Current Estimate 07/14/25 Ultrasound #1 30w 4d Other Estimates 07/07/25 LMP (Uncertain) 31w 4d Expected Delivery Route/Plan 30-year-old -0-0-2 History of vaginal delivery x 2, 13 and 8 years ago Specific Issue/Plans Considering tubal versus vasectomy labs O+/ antibody negative/ rubella immune/ RPR nonreactive /HIV negative/ hepatitis B surface antigen negative/hep C negative/ GC negative /Chlamydia negative/ hemoglobin 12.7 hematocrit 39.1/NIPT 46 XY Notes Visit Date: 05/09/25 Last Updated by: Sharona Valladares MD here for follow up at 30.4 weeks / she works sitting down and feels pelvic pressure / US for cervical length and Ob scheduled for 05/02/2025/ also c/o vaginal discharge / cervix was 4 cm on 05/02/2025 and c/w 30.6 weeks/ cephalic / vaginal c/s taken / patient urine analysis was negative on 05/04/2025 / she will wait for vaginal c/s report before proceeding with any medication / can use abdominal binder / Labor precautions given Visit Date: 04/17/25 Last Updated by: Sharona Valladares MD here for follow up at 27.3 weeks / she works sitting down and feels pelvic pressure / US for cervical length and Ob scheduled for 05/02/2025 and she had one dizzy episode 1.5 weeks ago at the dentist office / she has been advised to stretch and walk every 10 minutes at work for lower back pain/ and also to use abdominal binder and she does not follow instructions / her dizzy episode sounds like a vasovagal episode / adv to sleep on left side as well / follow up in 2 weeks / labs done for GTT on 04/04 and are normal for 1 hour GTT 121 and not anemic and RPR is NR / follow up in 2 to 3 weeks O+/antibody negative rubella immune/RPR nonreactive/HIV negative/ hepatitis B surface antigen negative/hep C negative/GC negative /Chlamydia negative hemoglobin 12.7/hematocrit 39.1/NIPT 46 XY. All PNC labs ordered and offered NIPT hx x 2 Low risk Visit Date: 03/23/25 Last Updated by: Sharona Valladares MD pelvic pressure/ brace using on and off plan US for cervical length and also growth order one hour GTT and RPR and CBC she needs to do stretching for joint stiffness / no suprapubic tenderness at 23.6 weeks / follow up in 4 weeks Visit Date: 02/12/25 Last Updated by: Saira Yuan ([facility])MD Urinalysis ultrasound for cervical length were normal from last visit. Repeat structural survey at approximately 24 weeks as this was done early at approximately 17 weeks. 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 Patient states she wears it sometimes but it rubs and bothers her other times. We can authorize for a different brace and patient states she will think about it. She does work but she sits at work a lot so she is going to get up and move around about once an hour and see if this helps. Visit Date: 01/29/25 Last Updated by: Saira Yuan ([facility])MD Ordered ultrasound for cervical length and urinalysis and culture. Visit Date: 01/12/25 Last Updated by: Saira Yuan ([facility])MD labs on the chart from 12/24/2024: O+/antibody negative rubella immune/RPR nonreactive/HIV negative/ hepatitis B surface antigen negative/hep C negative/GC negative /Chlamydia negative hemoglobin 12.7/hematocrit 39.1/NIPT 46 XY. Visit Date: 12/08/24 Last Updated by: Saira Yuan ([facility])MD All C labs ordered and offered NIPT hx x 2 Low risk Office Procedures [facility] LOC & Office Proc's Nursing/Assessment Patient Status: Established Patient [facility] Nursing Assessment: Medication Reconciliation, Update PMH in EMR and Vital Signs OB Clinic Coordination of Care: Complex Care and Chronic Disease 1-5, Education Complex Pt/Fam, Consent,records obtained, informed consent, Lab and Imaging orders, Results/Orders obtained and Staff clarify orders Special Needs: Heart tones Established Patient Charge Established Patient Point Assignment: 140 Established Patient Point Charge: EP Level 4 (120-155) Assessment & Plan Diagnosis / Problem List (1) Acute vaginitis: Status: Acute (2) Pelvic pressure in : Status: Acute (3) 30 weeks gestation of : Status: Acute Plan here for follow up at 30.4 weeks / she works sitting down and feels pelvic pressure / US for cervical length and Ob scheduled for 05/02/2025/ also c/o vaginal discharge / cervix was 4 cm on 05/02/2025 and c/w 30.6 weeks/ cephalic / vaginal c/s taken / patient urine analysis was negative on 05/04/2025 / she will wait for vaginal c/s report before proceeding with any medication / can use abdominal binder / Labor precautions given Additional Assessment Medical Office Building [address] [place] [address] Imaging Report Signed Patient: DIETER [facility]IM[facility]. Record#: [id number] Birthdate: 1995 Age/Sex: 30 / F Location: [facility] Attending Dr: Sharona Valladares MD Ordering Physician: SHARONA VALLADARES MD Date of Service: 05/02/25 Procedure(s): US OB >= 14 weeks Fetus Accession Number(s): [id number] cc: SHARONA VALLADARES MD; Esteban Cabello MD~ Examination: Complete OB ultrasound greater than 14 weeks Date and time of exam: May 02, 2025, 1541 hours INDICATIONS: Supervision otherwise normal Findings: Viable intrauterine single fetus with single amniotic sac presentation cephalic Cardiac motion 158 bpm Placenta posterior maternal right grade 1 Medical cord insertion 3 vessel seen Amniotic fluid index 14.2 cm spine maternal left Cervix 4.0 cm Ovaries obscured by bowel gas. Composite estimated gestational age based on BPD, head circumference, abdominal circumference, femur length is 30 weeks 6 days Estimated weight 1553 g. Survey of intracranial anatomy, spinal anatomy, abdominal anatomy, four-chamber heart performed with no abnormalities identified. Impression: Viable intrauterine gestation intra cephalic presentation. Dictated By: Esteban Cabello MD Signed By: <Electronically signed by Esteban Cabello MD in [place]> 05/02/251804 DD/ 55 TD/TT: 05/02/251755 City [employer]: [email or web address]
[2025-05-09 08:48] VITALS: BP 110/74; PULSE 84; RESP 18; TEMP 36.4; O2SAT 98; BMI 33.5
== END 2025-05-09 10:14 | disposition home or self-care (01) ==
LOC: HODSOBC 08:39
PROVIDERS: Supervising Provider Obstetrics & Gynecology; Visit Provider Obstetrics & Gynecology
DX: O09.893 Supervision of other high risk pregnancies, third trimester (principal); O23.593 Infection of other part of genital tract in pregnancy, third trimester; N76.0 Acute vaginitis; Z3A.30 30 weeks gestation of pregnancy; Z88.6 Allergy status to analgesic agent; Z88.2 Allergy status to sulfonamides
CPT/HCPCS: 99214; G0463